=== PATIENT | male | born 1980 | race African-American/Black ===

== ENCOUNTER 2017-11-14 11:49 | Emergency (ER) | payer SELFPAY ==
[2017-11-14] MEDS: ACETAMINOPHEN 325 MG TABLET. PO (12:22)
[2017-11-14 12:30] LABS: BILIRUBIN,URINE NEGATIVE (NEG); CLARITY,URINE CLEAR; COLOR,URINE YELLOW; GLUCOSE,URINE NEGATIVE (NEG); NITRITE,URINE NEGATIVE (NEG); PROTEIN,URINE NEGATIVE (NEG-TRACE); UROBILINOGEN,URINE 0.2 mg/dL (0.2 mg/dL)
[2017-11-14 12:41] LABS: SQUAMOUS EPITHELIAL CELL,UR FEW /LPF
[2017-11-14 12:43] LABS: BACTERIA,URINE FEW /HPF (0-FEW); RBC,URINE OCC /HPF (0-2); WBC,URINE RARE /HPF (0-4)
== END 2017-11-14 13:40 | disposition home or self-care (01) ==
LOC: ER 11:49
DX: N50.811 Right testicular pain (principal); R10.30 Lower abdominal pain, unspecified; Z88.6 Allergy status to analgesic agent
CPT/HCPCS: 76870; 81001; 87491; 87591; 99285-25

== ENCOUNTER 2019-07-18 08:25 | Emergency (ER) | payer BC ==
[~2019-07-18] VITALS: Ht 162.6 cm; Wt 59.0 kg
[~2019-07-18 08:25] MED LIST: ACET325T9 PO; AMOX1TAB61 PO; TRAM50TA PO
[2019-07-18] MEDS ORDERED: IV NORMAL SALINE 1000ML BAG 1,000 ML IV SCH (09:00)
[2019-07-18] MEDS ORDERED: MORPHINE SULFATE 4 MG/ML VIAL. IV/SQ PRN (09:00)
[2019-07-18] MEDS ORDERED: ONDANSETRON PF 4 MG/2 ML VIAL. IV ONE (09:00)
--- NOTE | 2019-07-18 09:25 | PHYS DOC ---
Past Medical History Past Medical History: Pancreatitis, Sickle Cell Disease Past Surgical History: No Surgical History Alcohol Use: Rarely Drug Use: Marijuana Adult General Chief Complaint Chief Complaint: ABDOMINAL PAIN HPI HPI Patient is a 39-year-old male who presents with complaint mid to lower thoracic back pain and midepigastric pain that started 3 days ago. Patient states that he has a history of sickle cell disease and this is typical of his sickle cell crises. He states that his last crisis was about 2 years ago. He denies any nausea or vomiting. He rates his pain currently at a 6 out of 10. He states that he has been taking some Tylenol PM for the pain. He denies any chest pain, headache or weakness. He also denies any fever. Patient states that nothing is currently improving his symptoms.[] Review of Systems Review of Systems Constitutional: Denies fever or chills [] Respiratory: Denies cough or shortness of breath [] Cardiovascular: No additional information not addressed in HPI [] GI: Complains of mid abdominal pain without vomiting or diarrhea [] Musculoskeletal: Complains of mid to lower thoracic back pain [] Integument: Denies rash or skin lesions [] Neurologic: Denies headache, focal weakness or sensory changes [] All other systems were reviewed and found to be within normal limits, except as documented in this note. Current Medications Current Medications Current Medications Medications (Trade) Dose Ordered Sig/Suresh Start Time Stop Time Status Last Admin Dose Admin Morphine Sulfate (Morphine Sulfate) 4 mg PRN Q15MIN PRN 07/18/19 09:00 07/19/19 08:59 07/18/19 09:11 4 MG Ondansetron HCl (Zofran) 4 mg 1X ONCE 07/18/19 09:00 07/18/19 09:01 DC 07/18/19 09:10 4 MG Sodium Chloride 1,000 ml @ 1,000 mls/hr Q1H 07/18/19 09:00 07/18/19 09:59 DC 07/18/19 09:11 1,000 MLS/HR Allergies Allergies Allergies Coded Allergies Type Severity Reaction Last Updated Verified ibuprofen Allergy Intermediate 10/19/14 Yes Physical Exam Physical Exam Constitutional: Well developed, well nourished, no acute distress, non-toxic appearance. [] HENT: Normocephalic, atraumatic, bilateral external ears normal, oropharynx moist, no oral exudates, nose normal. [] Eyes: PERRLA, EOMI, conjunctiva normal, no discharge. [] Neck: Normal range of motion, no tenderness, supple, no stridor. [] Cardiovascular: Regular rate and rhythm[] Lungs & Thorax: Bilateral breath sounds clear to auscultation [] Abdomen: Bowel sounds normal, soft, with mild generalized tenderness. [] Skin: Warm, dry, no erythema, no rash. [] Extremities: No tenderness, no cyanosis, no clubbing, ROM intact, no edema. [] Neurologic: Alert and oriented X 3, no focal deficits noted. [] Current Patient Data Vital Signs Vital Signs Date Time Temp Pulse Resp B/P (MAP) Pulse Ox O2 Delivery O2 Flow Rate FiO2 07/18/19 09:52 20 95 Room Air 07/18/19 09:39 52 120/79 (93) 07/18/19 08:28 98.0 98.0 Lab Values Laboratory Tests Test 07/18/19 08:40 07/18/19 10:02 Urine Collection Type Void Urine Color Yellow Urine Clarity Clear Urine pH 6.0 Urine Specific [place] 1.010 Urine Protein Negative mg/dL (NEG-TRACE) Urine Glucose (UA) Negative mg/dL (NEG) Urine Ketones (Stick) Negative mg/dL (NEG) Urine Blood Negative (NEG) Urine Nitrite Negative (NEG) Urine Bilirubin Negative (NEG) Urine Urobilinogen Dipstick 0.2 mg/dL (0.2 mg/dL) Urine Leukocyte Esterase Negative (NEG) Urine RBC 0 /HPF (0-2) Urine WBC 0 /HPF (0-4) Urine Squamous Epithelial Cells Occ /LPF Urine Bacteria 0 /HPF (0-FEW) White Blood Count 6.6 x10^3/uL (4.0-11.0) Red Blood Count 3.65 x10^6/uL (4.30-5.70) L Hemoglobin 12.1 g/dL (13.0-17.5) L Hematocrit 34.7 % (39.0-53.0) L Mean Corpuscular Volume 95 fL (79-100) Mean Corpuscular Hemoglobin 33 pg (25-35) Mean Corpuscular Hemoglobin Concent 35 g/dL (31-37) Red Cell Distribution Width 16.2 % (11.5-14.5) H Platelet Count 147 x10^3/uL (140-400) Neutrophils (%) (Auto) 42 % (31-73) Lymphocytes (%) (Auto) 32 % (24-48) Monocytes (%) (Auto) 18 % (0-9) H Eosinophils (%) (Auto) 6 % (0-3) H Basophils (%) (Auto) 2 % (0-3) Neutrophils # (Auto) 2.7 x10^3/uL (1.8-7.7) Lymphocytes # (Auto) 2.1 x10^3/uL (1.0-4.8) Monocytes # (Auto) 1.2 x10^3/uL (0.0-1.1) H Eosinophils # (Auto) 0.4 x10^3/uL (0.0-0.7) Basophils # (Auto) 0.1 x10^3/uL (0.0-0.2) Platelet Estimate Pending Absolute Reticulocyte Count 0.168 x10^6/uL (0.020-0.120) Percent Reticulocyte Count 4.6 % (0.5-2.3) H Immature Reticulocyte Fraction 0.56 (0.20-0.60) Sodium Level 142 mmol/L (136-145) Potassium Level 4.4 mmol/L (3.5-5.1) Chloride Level 106 mmol/L (98-107) Carbon Dioxide Level 27 mmol/L (21-32) Anion Gap 9 (6-14) Blood Urea Nitrogen 8 mg/dL (8-26) Creatinine 1.0 mg/dL (0.7-1.3) Estimated GFR (Cockcroft-Gault) 101.2 BUN/Creatinine Ratio 8 (6-20) Glucose Level 79 mg/dL (70-99) Calcium Level 8.3 mg/dL (8.5-10.1) L Total Bilirubin 1.4 mg/dL (0.2-1.0) H Aspartate Amino Transferase (AST) 28 U/L (15-37) Alanine Aminotransferase (ALT) 18 U/L (16-63) Alkaline Phosphatase 67 U/L (46-116) Total Protein 6.9 g/dL (6.4-8.2) Albumin 3.7 g/dL (3.4-5.0) Albumin/Globulin Ratio 1.2 (1.0-1.7) Lipase 159 U/L (73-393) Laboratory Tests 07/18/19 10:02 Laboratory Tests 07/18/19 10:02 EKG EKG [] Radiology/Procedures Radiology/Procedures [] Course & Med Decision Making Course & Med Decision Making Pertinent Labs and Imaging studies reviewed. (See chart for details) [] Dragon Disclaimer Dragon Disclaimer This electronic medical record was generated, in whole or in part, using a voice recognition dictation system. Departure Departure Impression: Primary Impression: Sickle cell anemia Disposition: HOME, SELF-CARE Condition: STABLE Referrals: JOLENE NEGRO MD (PCP) Patient Instructions: Sickle Cell Pain Crisis Scripts Hydrocodone/Apap 7.5-325 (NORCO 7.5-325 TABLET) 1 Each Tablet 1 TAB PO PRN Q6HRS PRN for PAIN, #12 TAB 0 Refills Prov: LARS BALDERAS Jr. DO 07/18/19 Problem Qualifiers Primary Impression: Sickle cell anemia Sickle-cell associated disorders: with unspecified crisis Qualified Codes: D57.00 - Hb-SS disease with crisis, unspecified LARS BALDERAS Jr. DO Jul 18, 2019 09:25
[2019-07-18 09:34] LABS: BILIRUBIN,URINE NEGATIVE (NEG); CLARITY,URINE CLEAR; COLOR,URINE YELLOW; NITRITE,URINE NEGATIVE (NEG); PROTEIN,URINE NEGATIVE (NEG-TRACE); UROBILINOGEN,URINE 0.2 mg/dL (0.2 mg/dL)
[2019-07-18 09:59] LABS: BACTERIA,URINE 0 /HPF (0-FEW); RBC,URINE 0 /HPF (0-2); SQUAMOUS EPITHELIAL CELL,UR OCC /LPF; WBC,URINE 0 /HPF (0-4)
[2019-07-18 10:12] LABS: BASO # 0.1 x10^3/uL (0.0-0.2); BASO % 2 % (0-3); EOS # 0.4 x10^3/uL (0.0-0.7); EOS % 6 % (0-3); HEMATOCRIT 34.7 % (39.0-53.0); HEMOGLOBIN 12.1 g/dL (13.0-17.5); LYMPH # 2.1 x10^3/uL (1.0-4.8); LYMPH % 32 % (24-48); MEAN CORPUSCULAR HEMOGLOBIN 33 pg (25-35); MEAN CORPUSCULAR HGB CONC 35 g/dL (31-37); MEAN CORPUSCULAR VOLUME 95 fL (79-100); MONO # 1.2 x10^3/uL (0.0-1.1); MONO % 18 % (0-9); NEUT # 2.7 x10^3/uL (1.8-7.7); NEUT % 42 % (31-73); PLATELET COUNT 147 x10^3/uL (140-400); RED BLOOD COUNT 3.63 x10^6/uL (4.30-5.70); RED CELL DISTRIBUTION WIDTH 16.2 % (11.5-14.5); WHITE BLOOD COUNT 6.6 x10^3/uL (4.0-11.0)
[2019-07-18 10:26] LABS: ALBUMIN 3.7 g/dL (3.4-5.0); ALBUMIN/GLOBULIN RATIO 1.2 (1.0-1.7); CALCIUM 8.3 mg/dL (8.5-10.1); GFR 101.2; POTASSIUM 4.4 mmol/L (3.5-5.1); TOTAL BILIRUBIN 1.4 mg/dL (0.2-1.0); TOTAL PROTEIN 6.9 g/dL (6.4-8.2)
[2019-07-18] MEDS ORDERED: HYDR-3165 PO (11:06)
[2019-07-18 11:09] VITALS: BP 129/82
[2019-07-18 11:39] LABS: PLT ESTIMATE ADEQUATE (ADEQUATE); POIKILOCYTOSIS PRESENT
[2019-07-18 11:40] LABS: ANISOCYTOSIS SLIGHT; BIZZARE CELLS PRESENT; OVALOCYTES OCC; SCHISTOCYTES OCC
== END 2019-07-18 11:15 | disposition home or self-care (01) ==
LOC: ER 08:25
DX: D57.00 Hb-SS disease with crisis, unspecified (principal); M54.5 Low back pain; M54.6 Pain in thoracic spine; R10.13 Epigastric pain; R19.7 Diarrhea, unspecified; Z88.8 Allergy status to other drugs, medicaments and biological substances
CPT/HCPCS: 36415; 80053; 81001; 83690; 85025; 85045; 96361; 96374; 96375; 99284; J2270; J2405; J7030

== ENCOUNTER 2020-04-22 07:54 | Emergency (ER) | payer BC ==
[~2020-04-22] VITALS: Ht 162.6 cm; Wt 63.0 kg
[~2020-04-22 07:54] MED LIST changes: +HYDR-3165 PO
[2020-04-22 08:04] VITALS: BP 111/63
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
--- NOTE | 2020-04-22 09:06 | RAD ---
CT HEAD AND CERVICAL SPINE WO Date: 04/22/2020 8:16 AM Clinical Indication: head injury, pain Comparison: None. Technique: 5 mm axial tomographic images were obtained of the head without contrast. These were viewed on brain and bone windows. CT imaging of the cervical spine was performed without contrast. Coronal and sagittal reformatted images were performed. One or more of the following dose reduction techniques were utilized: Automated exposure control (AEC), Adjustment of mA and/or kV according to patient size, Use of iterative reconstruction technique such as ASiR, CT scan done according to ALARA and image gently/image wisely HEAD FINDINGS: The brain parenchyma is normal in attenuation. No intra- or extra-axial mass or fluid collection. No acute hemorrhage. The ventricles are normal in size, shape, and morphology. The villalba-white matter junction is normal. The basilar cisterns are patent. Left cerebellar prominent sulcus versus chronic lacunar infarct. The visualized paranasal sinuses are normal. The visualized portions of the orbits and globes are normal. The mastoid air cells are clear. No aggressive osseous lesion or fracture. CERVICAL SPINE FINDINGS: The cervical spine is normally aligned. No acute fracture. No aggressive lytic or blastic osseous lesion. The intervertebral disc heights are maintained. No high-grade spinal canal stenosis or neural foraminal narrowing. The thyroid gland is normal. No cervical lymphadenopathy. The visualized aerodigestive tract is unremarkable. The visualized lung apices are clear. IMPRESSION: 1. No acute intracranial process. 2. No acute osseous abnormality of the cervical spine. 3. Left cerebellar prominent sulcus versus chronic lacunar infarct. Electronically signed by: Suleiman Márquez MD (04/22/2020 9:03 AM) [id number]
== END 2020-04-22 09:45 | disposition home or self-care (01) ==
LOC: ER 07:54
DX: S09.8XXA Other specified injuries of head, initial encounter (principal); M54.2 Cervicalgia; K86.1 Other chronic pancreatitis; F17.200 Nicotine dependence, unspecified, uncomplicated; F12.90 Cannabis use, unspecified, uncomplicated; Z88.6 Allergy status to analgesic agent; W18.39XA Other fall on same level, initial encounter; Y93.89 Activity, other specified; Y92.89 Other specified places as the place of occurrence of the external cause; Y99.8 Other external cause status
CPT/HCPCS: 70450; 72125; 99285